=== PATIENT | female | born 1985 | race Caucasian/White ===

== ENCOUNTER 2016-10-15 00:46 | Emergency (ER) | payer MEDICAID, SELFPAY ==
[~2016-10-15] VITALS: Ht 160 cm; Wt 53.0 kg
[2016-10-15 00:48] VITALS: BP 134/87
[2016-10-15] MEDS ORDERED: HYDROmorphone 1 MG/ML, 1ML IM ONE (02:00)
[2016-10-15] MEDS ORDERED: HYDROmorphone 1 MG/ML, 1ML ONE (02:00)
== END 2016-10-15 03:04 | disposition home or self-care (01) ==
LOC: ED 02:58
DX: S39.012A Strain of muscle, fascia and tendon of lower back, initial encounter (principal); W10.9XXA Fall (on) (from) unspecified stairs and steps, initial encounter; Y93.89 Activity, other specified; Y92.89 Other specified places as the place of occurrence of the external cause; Y99.8 Other external cause status
CPT/HCPCS: 72110; 96372; 99284; J1170

== ENCOUNTER 2016-12-13 00:13 | Emergency (ER) | payer SELFPAY ==
[2016-12-13] MEDS ORDERED: KETOROLAC 30 MG/1 ML ONE (01:04)
[2016-12-13 01:26] LABS: BLOOD UREA NITROGEN 15 mg/dL (7-18)
[2016-12-13] MEDS ORDERED: KETOROLAC 30 MG/1 ML IVPush ONE (01:30)
[2016-12-13] MEDS ORDERED: SODIUM CHLORIDE FLUSH 10ML SYR IVF ONE (01:30)
[2016-12-13] MEDS ORDERED: SODIUM CHLORIDE 0.9% 1,000ML IVBOLUS ONE (01:30)
[2016-12-13] MEDS ORDERED: PLEASE ENTER WEIGHT MC SCH (01:30)
[2016-12-13] MEDS ORDERED: HYDR-3307 PO (01:38)
[2016-12-13] MEDS ORDERED: FLUO20CA19 PO (01:38)
[2016-12-13] MEDS ORDERED: QUET50TA5 PO (01:38)
[2016-12-13] MEDS ORDERED: SUMA25TA4 PO (01:38)
[2016-12-13] MEDS ORDERED: BUSP10TA PO (01:38)
[2016-12-13 03:10] VITALS: BP 116/78
== END 2016-12-13 03:13 | disposition home or self-care (01) ==
LOC: ED 01:05
DX: J00 Acute nasopharyngitis [common cold] (principal); Z90.49 Acquired absence of other specified parts of digestive tract
CPT/HCPCS: 36415; 71010; 80048; 82040; 85025; 96361; 96374; 99285; J1885; J7030

== ENCOUNTER 2018-06-28 04:20 | Emergency (ER) | payer MEDICAID ==
[~2018-06-28] VITALS: Ht 160 cm; Wt 53.6 kg
[~2018-06-28 04:20] MED LIST: BUSP10TA PO; FLUO20CA19 PO; HYDR-3307 PO; QUET50TA5 PO; SUMA25TA4 PO
[2018-06-28 04:23] VITALS: BP 131/91
--- NOTE | 2018-06-28 04:58 | NUR ---
JOSE PHILIP AT BS FOR EVAL.
--- NOTE | 2018-06-28 06:07 | NUR ---
PT. RESTING ON GURNEY LEFT SIDE LYING. FRIEND AT FOR SUPPORT. CHART UP FOR RECHECK AT THIS TIME.
== END 2018-06-28 06:35 | disposition home or self-care (01) ==
LOC: ED 05:26
DX: K04.7 Periapical abscess without sinus (principal); K02.9 Dental caries, unspecified; Z90.49 Acquired absence of other specified parts of digestive tract
CPT/HCPCS: 64400; 70100; 99284